=== PATIENT | male | born 1965 | race African-American/Black ===

== ENCOUNTER 2022-06-04 10:15 | Inpatient (IN) | payer OTHER ==
[2022-06-04 10:39] VITALS: BMI 33.3
[2022-06-04] MEDS ORDERED: guaiFENesin 200 MG/10 ML 10 ML UNIT-DOSE CUPS PO PRN (10:54)
[2022-06-04] MEDS ORDERED: LOPERAMIDE HCL 2 MG CAPSULE PO PRN (10:54)
[2022-06-04] MEDS ORDERED: POLYETHYLENE GLYCOL (HEALTHYLAX) 3350 17 GM PACKET PO PRN (10:54)
[2022-06-04] MEDS ORDERED: P-EPHED 60MG/TRIPROLIDI 2.5MG TABLET PO PRN (10:54)
[2022-06-04] MEDS ORDERED: DICYCLOMINE HCL 10 MG CAPSULE PO PRN (10:54)
[2022-06-04] MEDS ORDERED: IBUPROFEN 400 MG TABLET (FP) PO PRN (10:54)
[2022-06-04] MEDS ORDERED: BISMUTH SUBSALICYLATE 262 MG/15 ML BTL PO PRN (10:54)
[2022-06-04] MEDS ORDERED: BENZOCAINE/MENTHOL (CHLORASEPTIC ) LOZENGE MM PRN (10:54)
[2022-06-04] MEDS ORDERED: IBUPROFEN 600 MG TABLET (FP) PO PRN (10:54)
[2022-06-04] MEDS ORDERED: ONDANSETRON *ODT* 4 MG TABLET SL PRN (10:54)
[2022-06-04] MEDS ORDERED: ACETAMINOPHEN 325 MG TABLET (FP) PO PRN ×2 (10:54)
[2022-06-04] MEDS ORDERED: MAGNESIUM HYDROX 2400MG/30ML ORAL SUSPENSION 30 ML CUP PO PRN (10:54)
[2022-06-04] MEDS ORDERED: MAG HYDROX/AL HYDROX/SIMETH 30 ML UNIT-DOSE CUP PO PRN (10:54)
[2022-06-04] MEDS ORDERED: diazePAM 5 MG TABLET PO PRN (10:56)
[2022-06-04] MEDS: NICOTINE 14 MG/24 HOURS TOPICAL PATCH TD SCH (11:46)
[2022-06-04] MEDS: THIAMINE HCL 100 MG TABLET (FP) PO SCH (22:09)
[2022-06-04] MEDS: METHOCARBAMOL 500 MG TABLET PO PRN (22:09)
[2022-06-04] MEDS: MELATONIN 5 MG TABLETS PO PRN (22:10)
[2022-06-05] MEDS: PRENATAL VITAMINS W/ FOLIC ACID TABLET (FP) PO SCH (10:17)
[2022-06-05] MEDS: METHOCARBAMOL 500 MG TABLET PO PRN (10:18)
[2022-06-05] MEDS: hydrOXYzine PAMOATE 25 MG CAPSULE (FP) PO PRN (10:18)
[2022-06-05] MEDS: NICOTINE 14 MG/24 HOURS TOPICAL PATCH TD SCH (10:19)
[2022-06-05] MEDS ORDERED: chlordiazePOXIDE HCL 25 MG CAPSULE PO PRN (10:56)
[2022-06-05] MEDS: chlordiazePOXIDE HCL 25 MG CAPSULE PO SCH ×3 (12:09→22:18)
[2022-06-05 12:35] LABS: HEMATOCRIT 37.7 % (35.4-49); HEMOGLOBIN 12.5 GM/dL (11.7-16.9); MCH 29.4 pg (25.7-33.7); MCHC 33.1 g/dl (32.0-35.9); MEAN CELL VOLUME 88.8 fl (80-96); MEAN PLT VOLUME 8.3 fl (7.5-11.1); PLATELET COUNT 256 10^3/uL (134-434); RBC 4.25 M/mm3 (4.00-5.60); RDW 14.8 % (11.9-15.9); WHITE BLOOD COUNT 7.1 K/mm3 (4.0-10.0)
[2022-06-05 12:47] LABS: ALBUMIN 3.3 g/dl (3.4-5.0); BLOOD UREA NITROGEN 12.3 mg/dL (7-18); CALCIUM 8.4 mg/dL (8.5-10.1)
[2022-06-05 12:49] LABS: CREATININE 0.9 mg/dL (0.55-1.3)
[2022-06-05 12:53] LABS: BILIRUBIN,TOTAL 0.5 mg/dL (0.2-1); TOT PROT 6.7 g/dl (6.4-8.2)
[2022-06-05] MEDS: THIAMINE HCL 100 MG TABLET (FP) PO SCH (22:18)
[2022-06-05] MEDS: MELATONIN 5 MG TABLETS PO PRN (22:19)
[2022-06-06] MEDS: chlordiazePOXIDE HCL 25 MG CAPSULE PO SCH ×4 (05:34→22:00)
[2022-06-06] MEDS: PRENATAL VITAMINS W/ FOLIC ACID TABLET (FP) PO SCH (10:19)
[2022-06-06] MEDS: NICOTINE 14 MG/24 HOURS TOPICAL PATCH TD SCH (10:19)
[2022-06-06] MEDS: METHOCARBAMOL 500 MG TABLET PO PRN (10:21)
[2022-06-06] MEDS: hydrOXYzine PAMOATE 25 MG CAPSULE (FP) PO PRN (10:21)
[2022-06-06] MEDS: MELATONIN 5 MG TABLETS PO PRN (22:00)
[2022-06-06] MEDS: THIAMINE HCL 100 MG TABLET (FP) PO SCH (22:00)
[2022-06-07] MEDS: chlordiazePOXIDE HCL 25 MG CAPSULE PO SCH ×4 (06:01→22:15)
[2022-06-07] MEDS: PRENATAL VITAMINS W/ FOLIC ACID TABLET (FP) PO SCH (10:25)
[2022-06-07] MEDS: METHOCARBAMOL 500 MG TABLET PO PRN (10:26)
[2022-06-07] MEDS: NICOTINE 14 MG/24 HOURS TOPICAL PATCH TD SCH (10:26)
[2022-06-07 11:22] LABS: CALCIUM 8.7 mg/dL (8.5-10.1)
[2022-06-07 11:23] LABS: ALBUMIN 3.3 g/dl (3.4-5.0)
[2022-06-07 11:26] LABS: CREATININE 0.8 mg/dL (0.55-1.3)
[2022-06-07 11:27] LABS: TOT PROT 6.9 g/dl (6.4-8.2)
[2022-06-07 11:28] LABS: BILIRUBIN,TOTAL 0.5 mg/dL (0.2-1)
[2022-06-07] MEDS: MELATONIN 5 MG TABLETS PO PRN (22:15)
[2022-06-07] MEDS: THIAMINE HCL 100 MG TABLET (FP) PO SCH (22:15)
[2022-06-08] MEDS ORDERED: chlordiazePOXIDE HCL 10 MG CAPSULE PO PRN
[2022-06-08] MEDS: chlordiazePOXIDE HCL 10 MG CAPSULE PO SCH ×4 (06:10→22:20)
[2022-06-08] MEDS: PRENATAL VITAMINS W/ FOLIC ACID TABLET (FP) PO SCH (10:40)
[2022-06-08] MEDS: NICOTINE 14 MG/24 HOURS TOPICAL PATCH TD SCH (10:40)
[2022-06-08] MEDS: hydrOXYzine PAMOATE 25 MG CAPSULE (FP) PO PRN (10:40)
[2022-06-08] MEDS: METHOCARBAMOL 500 MG TABLET PO PRN (10:40)
[2022-06-08] MEDS: MELATONIN 5 MG TABLETS PO PRN (22:20)
[2022-06-08] MEDS: THIAMINE HCL 100 MG TABLET (FP) PO SCH (22:20)
[2022-06-09] MEDS: chlordiazePOXIDE HCL 10 MG CAPSULE PO SCH ×2 (05:52→17:40)
[2022-06-09] MEDS: METHOCARBAMOL 500 MG TABLET PO PRN ×2 (10:17→22:13)
[2022-06-09] MEDS: PRENATAL VITAMINS W/ FOLIC ACID TABLET (FP) PO SCH (10:17)
[2022-06-09] MEDS: hydrOXYzine PAMOATE 25 MG CAPSULE (FP) PO PRN ×2 (10:17→22:13)
[2022-06-09] MEDS: NICOTINE 14 MG/24 HOURS TOPICAL PATCH TD SCH (10:17)
[2022-06-09] MEDS: MELATONIN 5 MG TABLETS PO PRN (22:13)
[2022-06-09] MEDS: THIAMINE HCL 100 MG TABLET (FP) PO SCH (22:13)
[2022-06-10] MEDS ORDERED: chlordiazePOXIDE HCL 10 MG CAPSULE PO ONE (05:00)
[2022-06-10] MEDS ORDERED: INSULIN (NOVOLOG) ASPART 100 UNITS/ML 10ML VIAL SQ ONE ×2 (06:29→14:21)
[2022-06-10] MEDS: PRENATAL VITAMINS W/ FOLIC ACID TABLET (FP) PO SCH (10:40)
[2022-06-10] MEDS: NICOTINE 14 MG/24 HOURS TOPICAL PATCH TD SCH (10:40)
[2022-06-10] MEDS ORDERED: INSULIN (NOVOLOG) ASPART 100 UNITS/ML 10ML VIAL ONE ×2 (16:50→21:57)
[2022-06-10] MEDS: INSULIN (NOVOLOG) ASPART 100 UNITS/ML 10ML VIAL SQ SCH ×2 (16:53→22:16)
[2022-06-10] MEDS: MELATONIN 5 MG TABLETS PO PRN (22:16)
[2022-06-10] MEDS: THIAMINE HCL 100 MG TABLET (FP) PO SCH (22:17)
[2022-06-11] MEDS ORDERED: INSULIN (NOVOLOG) ASPART 100 UNITS/ML 10ML VIAL ONE (05:56)
[2022-06-11] MEDS: INSULIN (NOVOLOG) ASPART 100 UNITS/ML 10ML VIAL SQ SCH (06:57)
[2022-06-11 07:01] VITALS: RESP 18
[2022-06-11 09:17] VITALS: BP 107/87; PULSE 87; TEMP 97.8
[2022-06-11] MEDS: NICOTINE 14 MG/24 HOURS TOPICAL PATCH TD SCH (10:49)
[2022-06-11] MEDS: PRENATAL VITAMINS W/ FOLIC ACID TABLET (FP) PO SCH (10:49)
[2022-06-11] MEDS ORDERED: INSULIN (NOVOLOG) ASPART 100 UNITS/ML 10ML VIAL SQ SCH (11:00)
== END 2022-06-11 11:02 | disposition home or self-care (01) | DRG 775 ==
LOC: YASAS 10:15 → Y6N 11:11
PROVIDERS: ADMIT Allergy & Immunology; ATTEND Surgery
PROC: HZ2ZZZZ Detoxification Services for Substance Abuse Treatment (ICD-10-PCS; principal; 2022-06-04)
DX: F10.230 Alcohol dependence with withdrawal, uncomplicated (principal); F17.210 Nicotine dependence, cigarettes, uncomplicated; E87.1 Hypo-osmolality and hyponatremia; E11.65 Type 2 diabetes mellitus with hyperglycemia; Z79.4 Long term (current) use of insulin; M17.0 Bilateral primary osteoarthritis of knee
CPT/HCPCS: 36415; 80053; 82962; 83036; 84295; 85027; 86780; C9803-CS; U0003; U0005

== ENCOUNTER 2022-11-12 12:30 | Inpatient (IN) | payer OTHER ==
[2022-11-12 13:17] VITALS: BMI 33.6
[2022-11-12] MEDS ORDERED: MAGNESIUM HYDROX 2400MG/30ML ORAL SUSPENSION 30 ML CUP PO PRN (13:35)
[2022-11-12] MEDS ORDERED: IBUPROFEN 400 MG TABLET (FP) PO PRN (13:35)
[2022-11-12] MEDS ORDERED: chlordiazePOXIDE HCL 25 MG CAPSULE PO PRN (13:35)
[2022-11-12] MEDS ORDERED: hydrOXYzine PAMOATE 25 MG CAPSULE (FP) PO PRN (13:35)
[2022-11-12] MEDS ORDERED: BISMUTH SUBSALICYLATE 262 MG/15 ML BTL PO PRN (13:35)
[2022-11-12] MEDS ORDERED: NALOXONE HCL (KLOXXADO) 8 MG SPRAY NS PRN (13:35)
[2022-11-12] MEDS ORDERED: BENZONATATE 200 MG CAPSULE PO PRN (13:35)
[2022-11-12] MEDS ORDERED: NALOXONE HCL 0.4 MG/ML VIAL IM PRN (13:35)
[2022-11-12] MEDS ORDERED: ACETAMINOPHEN 325 MG TABLET (FP) PO PRN (13:35)
[2022-11-12] MEDS ORDERED: ONDANSETRON *ODT* 4 MG TABLET SL PRN (13:35)
[2022-11-12] MEDS ORDERED: DICYCLOMINE HCL 10 MG CAPSULE PO PRN (13:35)
[2022-11-12] MEDS ORDERED: POLYETHYLENE GLYCOL (HEALTHYLAX) 3350 17 GM PACKET PO PRN (13:35)
[2022-11-12] MEDS ORDERED: IBUPROFEN 600 MG TABLET (FP) PO PRN (13:35)
[2022-11-12] MEDS ORDERED: MAG HYDROX/AL HYDROX/SIMETH 30 ML UNIT-DOSE CUP PO PRN (13:35)
[2022-11-12] MEDS ORDERED: BENZOCAINE/MENTHOL (CHLORASEPTIC ) LOZENGE MM PRN (13:35)
[2022-11-12] MEDS ORDERED: guaiFENesin 600 MG TABLET.ER (FP) PO PRN (13:35)
[2022-11-12] MEDS: PRENATAL VITAMINS W/ FOLIC ACID TABLET (FP) PO SCH (14:35)
[2022-11-12] MEDS: NICOTINE 21 MG/24 HOURS TOPICAL PATCH TD SCH (14:35)
[2022-11-12] MEDS ORDERED: NICOTINE 21 MG/24 HOURS TOPICAL PATCH ONE (15:12)
[2022-11-12] MEDS: cloNIDine HCL 0.1 MG TABLET PO PRN ×2 (16:02→22:24)
[2022-11-12] MEDS: metFORMIN HCL 500 MG TABLET (FP) PO SCH (16:02)
[2022-11-12] MEDS: chlordiazePOXIDE HCL 25 MG CAPSULE PO SCH ×2 (17:24→22:25)
[2022-11-12] MEDS ORDERED: MELATONIN 5 MG TABLETS PO SCH (22:00)
[2022-11-12] MEDS: METHOCARBAMOL 500 MG TABLET PO PRN (22:25)
[2022-11-12] MEDS: THIAMINE HCL 100 MG TABLET (FP) PO SCH (22:25)
[2022-11-13] MEDS: chlordiazePOXIDE HCL 25 MG CAPSULE PO SCH ×4 (05:42→22:25)
[2022-11-13] MEDS: metFORMIN HCL 500 MG TABLET (FP) PO SCH (10:14)
[2022-11-13] MEDS: PRENATAL VITAMINS W/ FOLIC ACID TABLET (FP) PO SCH (10:14)
[2022-11-13] MEDS: NICOTINE 21 MG/24 HOURS TOPICAL PATCH TD SCH (10:16)
[2022-11-13 12:16] LABS: HEMATOCRIT 38.1 % (35.4-49); HEMOGLOBIN 12.9 GM/dL (11.7-16.9); MCH 29.2 pg (25.7-33.7); MCHC 33.8 g/dl (32.0-35.9); MEAN CELL VOLUME 86.5 fl (80-96); PLATELET COUNT 287 10^3/uL (134-434); RBC 4.41 M/mm3 (4.00-5.60); WHITE BLOOD COUNT 7.4 K/mm3 (4.0-10.0)
[2022-11-13 12:22] LABS: POTASSIUM 4.4 mmol/L (3.5-5.1)
[2022-11-13 12:55] LABS: ALBUMIN 3.4 g/dl (3.4-5.0)
[2022-11-13 12:59] LABS: CALCIUM 9.2 mg/dL (8.5-10.1)
[2022-11-13 13:02] LABS: BLOOD UREA NITROGEN 12.2 mg/dL (7-18)
[2022-11-13 13:03] LABS: BILIRUBIN,TOTAL 0.4 mg/dL (0.2-1); CREATININE 0.9 mg/dL (0.55-1.3); TOT PROT 7.5 g/dl (6.4-8.2)
[2022-11-13] MEDS: LOPERAMIDE HCL 2 MG CAPSULE PO PRN (18:37)
[2022-11-13] MEDS: THIAMINE HCL 100 MG TABLET (FP) PO SCH (22:25)
[2022-11-13] MEDS: QUEtiapine FUMARATE 100 MG TABLET (FP) PO SCH (22:25)
[2022-11-13] MEDS: METHOCARBAMOL 500 MG TABLET PO PRN (22:26)
[2022-11-14] MEDS: chlordiazePOXIDE HCL 25 MG CAPSULE PO SCH ×4 (05:59→22:26)
[2022-11-14] MEDS: PRENATAL VITAMINS W/ FOLIC ACID TABLET (FP) PO SCH (10:27)
[2022-11-14] MEDS: metFORMIN HCL 500 MG TABLET (FP) PO SCH (10:27)
[2022-11-14] MEDS: NICOTINE 21 MG/24 HOURS TOPICAL PATCH TD SCH (10:28)
[2022-11-14] MEDS: LACTULOSE 20 GM/30 ML UDC (FOR ORAL USE ONLY) PO SCH ×3 (15:17→22:25)
[2022-11-14] MEDS ORDERED: LACTULOSE 20 GM/30 ML UDC (FOR ORAL USE ONLY) PO ONE (15:53)
[2022-11-14] MEDS: LOPERAMIDE HCL 2 MG CAPSULE PO PRN (19:22)
[2022-11-14] MEDS: QUEtiapine FUMARATE 100 MG TABLET (FP) PO SCH (22:25)
[2022-11-14] MEDS: THIAMINE HCL 100 MG TABLET (FP) PO SCH (22:26)
[2022-11-14] MEDS: METHOCARBAMOL 500 MG TABLET PO PRN (22:27)
[2022-11-15] MEDS ORDERED: chlordiazePOXIDE HCL 10 MG CAPSULE PO PRN
[2022-11-15] MEDS: chlordiazePOXIDE HCL 10 MG CAPSULE PO SCH ×4 (06:00→22:04)
[2022-11-15] MEDS: metFORMIN HCL 500 MG TABLET (FP) PO SCH (10:10)
[2022-11-15] MEDS: PRENATAL VITAMINS W/ FOLIC ACID TABLET (FP) PO SCH (10:10)
[2022-11-15] MEDS: NICOTINE 21 MG/24 HOURS TOPICAL PATCH TD SCH (10:11)
[2022-11-15] MEDS: LACTULOSE 20 GM/30 ML UDC (FOR ORAL USE ONLY) PO SCH ×4 (10:11→22:47)
[2022-11-15] MEDS: HYDROCORTISONE 2.5% TOPICAL CREAM 30 GM TUBE TP SCH (15:42)
[2022-11-15] MEDS: QUEtiapine FUMARATE 100 MG TABLET (FP) PO SCH (22:03)
[2022-11-15] MEDS: METHOCARBAMOL 500 MG TABLET PO PRN (22:04)
[2022-11-15] MEDS: THIAMINE HCL 100 MG TABLET (FP) PO SCH (22:04)
[2022-11-16] MEDS: chlordiazePOXIDE HCL 10 MG CAPSULE PO SCH ×2 (05:47→17:40)
[2022-11-16] MEDS: metFORMIN HCL 500 MG TABLET (FP) PO SCH ×2 (10:28→17:39)
[2022-11-16] MEDS: PRENATAL VITAMINS W/ FOLIC ACID TABLET (FP) PO SCH (10:28)
[2022-11-16] MEDS: NICOTINE 21 MG/24 HOURS TOPICAL PATCH TD SCH (10:29)
[2022-11-16] MEDS: LACTULOSE 20 GM/30 ML UDC (FOR ORAL USE ONLY) PO SCH ×4 (10:29→21:27)
[2022-11-16] MEDS: HYDROCORTISONE 2.5% TOPICAL CREAM 30 GM TUBE TP SCH (14:04)
[2022-11-16] MEDS: INSULIN SLIDING SCALE (NOVOLOG) 1 VIAL SQ SCH (17:39)
[2022-11-16] MEDS: QUEtiapine FUMARATE 100 MG TABLET (FP) PO SCH (21:28)
[2022-11-16] MEDS: THIAMINE HCL 100 MG TABLET (FP) PO SCH (21:28)
[2022-11-17] MEDS ORDERED: chlordiazePOXIDE HCL 10 MG CAPSULE PO ONE (05:00)
[2022-11-17] MEDS: metFORMIN HCL 500 MG TABLET (FP) PO SCH ×2 (06:20→16:39)
[2022-11-17] MEDS: INSULIN SLIDING SCALE (NOVOLOG) 1 VIAL SQ SCH ×3 (06:20→16:39)
[2022-11-17] MEDS: NICOTINE 21 MG/24 HOURS TOPICAL PATCH TD SCH (10:08)
[2022-11-17] MEDS: PRENATAL VITAMINS W/ FOLIC ACID TABLET (FP) PO SCH (10:08)
[2022-11-17] MEDS: LACTULOSE 20 GM/30 ML UDC (FOR ORAL USE ONLY) PO SCH ×3 (10:09→17:32)
[2022-11-17] MEDS ORDERED: PANTOPRAZOLE 40 MG TABLET PO SCH (13:00)
[2022-11-17] MEDS: HYDROCORTISONE 2.5% TOPICAL CREAM 30 GM TUBE TP SCH (14:48)
[2022-11-17 17:08] VITALS: BP 139/82; PULSE 95; RESP 20; TEMP 98.1
== END 2022-11-17 19:07 | disposition other institution (70) | DRG 775 ==
LOC: YASAS 12:30 → Y3N 15:04
PROVIDERS: ADMIT Allergy & Immunology; ATTEND Surgery
PROC: HZ2ZZZZ Detoxification Services for Substance Abuse Treatment (ICD-10-PCS; principal; 2022-11-12)
DX: F10.230 Alcohol dependence with withdrawal, uncomplicated (principal); F17.210 Nicotine dependence, cigarettes, uncomplicated; F19.282 Other psychoactive substance dependence with psychoactive substance-induced sleep disorder; G47.00 Insomnia, unspecified; E11.9 Type 2 diabetes mellitus without complications; Z79.4 Long term (current) use of insulin; R79.89 Other specified abnormal findings of blood chemistry
CPT/HCPCS: 36415; 80053; 82140; 82962; 85027; 86780; 87635

== ENCOUNTER 2022-11-17 19:53 | Inpatient (IN) | payer OTHER ==
[2022-11-17] MEDS ORDERED: AMMONIUM LACTATE 12% LOTION 225 GM BOTTLE TP PRN (22:02)
[2022-11-17] MEDS ORDERED: BENZOCAINE/MENTHOL (CHLORASEPTIC ) LOZENGE MM PRN (22:02)
[2022-11-17] MEDS ORDERED: METHOCARBAMOL 500 MG TABLET PO PRN (22:02)
[2022-11-17] MEDS ORDERED: POLYETHYLENE GLYCOL (HEALTHYLAX) 3350 17 GM PACKET PO PRN (22:02)
[2022-11-17] MEDS ORDERED: guaiFENesin 600 MG TABLET.ER (FP) PO PRN (22:02)
[2022-11-17] MEDS ORDERED: NALOXONE HCL 0.4 MG/ML VIAL IVPUSH PRN (22:02)
[2022-11-17] MEDS ORDERED: MAG HYDROX/AL HYDROX/SIMETH 30 ML UNIT-DOSE CUP PO PRN (22:02)
[2022-11-17] MEDS ORDERED: IBUPROFEN 400 MG TABLET (FP) PO PRN (22:02)
[2022-11-17] MEDS ORDERED: MAGNESIUM HYDROX 2400MG/30ML ORAL SUSPENSION 30 ML CUP PO PRN (22:02)
[2022-11-17] MEDS ORDERED: BENZONATATE 200 MG CAPSULE PO PRN (22:02)
[2022-11-17] MEDS ORDERED: ACETAMINOPHEN 325 MG TABLET (FP) PO PRN (22:02)
[2022-11-17] MEDS ORDERED: NALOXONE HCL (KLOXXADO) 8 MG SPRAY NS PRN (22:02)
[2022-11-17] MEDS ORDERED: LOPERAMIDE HCL 2 MG CAPSULE PO PRN (22:02)
[2022-11-17] MEDS ORDERED: IBUPROFEN 600 MG TABLET (FP) PO PRN (22:02)
[2022-11-17] MEDS: MELATONIN 5 MG TABLETS PO SCH (23:34)
[2022-11-18] MEDS: PRENATAL VITAMINS W/ FOLIC ACID TABLET (FP) PO SCH (10:06)
[2022-11-18] MEDS: INSULIN SLIDING SCALE (NOVOLOG) 1 VIAL SQ SCH (16:32)
[2022-11-18] MEDS: MELATONIN 5 MG TABLETS PO SCH (21:33)
[2022-11-18] MEDS: QUEtiapine FUMARATE 100 MG TABLET (FP) PO SCH (21:34)
[2022-11-18] MEDS: THIAMINE HCL 100 MG TABLET (FP) PO SCH (21:34)
[2022-11-19] MEDS: INSULIN SLIDING SCALE (NOVOLOG) 1 VIAL SQ SCH ×2 (06:56→16:27)
[2022-11-19] MEDS: metFORMIN HCL 500 MG TABLET (FP) PO SCH (06:57)
[2022-11-19] MEDS: PRENATAL VITAMINS W/ FOLIC ACID TABLET (FP) PO SCH (10:07)
[2022-11-19] MEDS: THIAMINE HCL 100 MG TABLET (FP) PO SCH (21:07)
[2022-11-19] MEDS: MELATONIN 5 MG TABLETS PO SCH (21:07)
[2022-11-19] MEDS: QUEtiapine FUMARATE 100 MG TABLET (FP) PO SCH (21:07)
[2022-11-20] MEDS ORDERED: INSULIN SLIDING SCALE (NOVOLOG) 1 VIAL SQ ONE (06:23)
[2022-11-20] MEDS: INSULIN SLIDING SCALE (NOVOLOG) 1 VIAL SQ SCH ×2 (06:25→16:22)
[2022-11-20] MEDS: metFORMIN HCL 500 MG TABLET (FP) PO SCH (06:25)
[2022-11-20] MEDS: PRENATAL VITAMINS W/ FOLIC ACID TABLET (FP) PO SCH (10:26)
[2022-11-20] MEDS: COLLOIDAL OATMEAL 1 BAR EACH TP PRN (12:42)
[2022-11-20] MEDS: THIAMINE HCL 100 MG TABLET (FP) PO SCH (21:23)
[2022-11-20] MEDS: MELATONIN 5 MG TABLETS PO SCH (21:23)
[2022-11-20] MEDS: QUEtiapine FUMARATE 100 MG TABLET (FP) PO SCH (21:24)
[2022-11-21] MEDS: metFORMIN HCL 500 MG TABLET (FP) PO SCH (06:15)
[2022-11-21] MEDS: INSULIN SLIDING SCALE (NOVOLOG) 1 VIAL SQ SCH ×2 (06:17→16:27)
[2022-11-21] MEDS: PRENATAL VITAMINS W/ FOLIC ACID TABLET (FP) PO SCH (10:25)
[2022-11-21] MEDS: THIAMINE HCL 100 MG TABLET (FP) PO SCH (21:18)
[2022-11-21] MEDS: QUEtiapine FUMARATE 100 MG TABLET (FP) PO SCH (21:18)
[2022-11-21] MEDS: MELATONIN 5 MG TABLETS PO SCH (21:18)
[2022-11-22] MEDS: INSULIN SLIDING SCALE (NOVOLOG) 1 VIAL SQ SCH ×2 (07:10→17:17)
[2022-11-22] MEDS: metFORMIN HCL 500 MG TABLET (FP) PO SCH (07:10)
[2022-11-22] MEDS: PRENATAL VITAMINS W/ FOLIC ACID TABLET (FP) PO SCH (09:45)
[2022-11-22] MEDS: QUEtiapine FUMARATE 100 MG TABLET (FP) PO SCH (21:10)
[2022-11-22] MEDS: THIAMINE HCL 100 MG TABLET (FP) PO SCH (21:10)
[2022-11-22] MEDS: MELATONIN 5 MG TABLETS PO SCH (21:10)
[2022-11-23] MEDS: INSULIN SLIDING SCALE (NOVOLOG) 1 VIAL SQ SCH ×2 (06:49→16:27)
[2022-11-23] MEDS: metFORMIN HCL 500 MG TABLET (FP) PO SCH (06:49)
[2022-11-23] MEDS: PRENATAL VITAMINS W/ FOLIC ACID TABLET (FP) PO SCH (09:26)
[2022-11-23] MEDS: PANTOPRAZOLE 40 MG TABLET PO SCH (09:27)
[2022-11-23] MEDS: QUEtiapine FUMARATE 100 MG TABLET (FP) PO SCH (21:32)
[2022-11-23] MEDS: THIAMINE HCL 100 MG TABLET (FP) PO SCH (21:32)
[2022-11-23] MEDS: MELATONIN 5 MG TABLETS PO SCH (21:32)
[2022-11-24] MEDS: INSULIN SLIDING SCALE (NOVOLOG) 1 VIAL SQ SCH ×2 (06:28→16:27)
[2022-11-24] MEDS: metFORMIN HCL 500 MG TABLET (FP) PO SCH (06:28)
[2022-11-24] MEDS: PRENATAL VITAMINS W/ FOLIC ACID TABLET (FP) PO SCH (10:01)
[2022-11-24] MEDS: PANTOPRAZOLE 40 MG TABLET PO SCH (10:01)
[2022-11-24] MEDS: THIAMINE HCL 100 MG TABLET (FP) PO SCH (21:06)
[2022-11-24] MEDS: QUEtiapine FUMARATE 100 MG TABLET (FP) PO SCH (21:06)
[2022-11-24] MEDS: MELATONIN 5 MG TABLETS PO SCH (21:06)
[2022-11-25] MEDS: metFORMIN HCL 500 MG TABLET (FP) PO SCH (07:23)
[2022-11-25] MEDS: INSULIN SLIDING SCALE (NOVOLOG) 1 VIAL SQ SCH ×2 (07:25→16:59)
[2022-11-25] MEDS ORDERED: INSULIN SLIDING SCALE (NOVOLOG) 1 VIAL SQ ONE (07:27)
[2022-11-25] MEDS: PRENATAL VITAMINS W/ FOLIC ACID TABLET (FP) PO SCH (09:47)
[2022-11-25] MEDS: PANTOPRAZOLE 40 MG TABLET PO SCH (09:47)
[2022-11-25] MEDS: THIAMINE HCL 100 MG TABLET (FP) PO SCH (21:14)
[2022-11-25] MEDS: MELATONIN 5 MG TABLETS PO SCH (21:15)
[2022-11-25] MEDS: QUEtiapine FUMARATE 100 MG TABLET (FP) PO SCH (21:15)
[2022-11-26] MEDS: metFORMIN HCL 500 MG TABLET (FP) PO SCH (07:00)
[2022-11-26] MEDS: INSULIN SLIDING SCALE (NOVOLOG) 1 VIAL SQ SCH ×2 (07:01→16:30)
[2022-11-26] MEDS: PANTOPRAZOLE 40 MG TABLET PO SCH (09:48)
[2022-11-26] MEDS: PRENATAL VITAMINS W/ FOLIC ACID TABLET (FP) PO SCH (09:48)
[2022-11-26] MEDS: QUEtiapine FUMARATE 100 MG TABLET (FP) PO SCH (21:40)
[2022-11-26] MEDS: MELATONIN 5 MG TABLETS PO SCH (21:41)
[2022-11-26] MEDS: THIAMINE HCL 100 MG TABLET (FP) PO SCH (21:41)
[2022-11-27] MEDS: metFORMIN HCL 500 MG TABLET (FP) PO SCH (06:36)
[2022-11-27] MEDS: INSULIN SLIDING SCALE (NOVOLOG) 1 VIAL SQ SCH ×2 (06:36→16:34)
[2022-11-27 07:15] VITALS: RESP 18
[2022-11-27] MEDS: PANTOPRAZOLE 40 MG TABLET PO SCH (10:01)
[2022-11-27] MEDS: PRENATAL VITAMINS W/ FOLIC ACID TABLET (FP) PO SCH (10:01)
[2022-11-27] MEDS: COLLOIDAL OATMEAL 1 BAR EACH TP PRN (14:43)
[2022-11-27] MEDS: QUEtiapine FUMARATE 100 MG TABLET (FP) PO SCH (21:10)
[2022-11-27] MEDS: THIAMINE HCL 100 MG TABLET (FP) PO SCH (21:10)
[2022-11-27] MEDS: GABAPENTIN 300 MG CAPSULE PO SCH (21:11)
[2022-11-28] MEDS: metFORMIN HCL 500 MG TABLET (FP) PO SCH (06:49)
[2022-11-28] MEDS: INSULIN SLIDING SCALE (NOVOLOG) 1 VIAL SQ SCH ×2 (06:49→16:30)
[2022-11-28 07:21] VITALS: TEMP 97.1
[2022-11-28] MEDS: PRENATAL VITAMINS W/ FOLIC ACID TABLET (FP) PO SCH (09:33)
[2022-11-28] MEDS: PANTOPRAZOLE 40 MG TABLET PO SCH (09:33)
[2022-11-28] MEDS: QUEtiapine FUMARATE 100 MG TABLET (FP) PO SCH (21:26)
[2022-11-28] MEDS: GABAPENTIN 300 MG CAPSULE PO SCH (21:26)
[2022-11-28] MEDS: THIAMINE HCL 100 MG TABLET (FP) PO SCH (21:26)
[2022-11-29] MEDS: metFORMIN HCL 500 MG TABLET (FP) PO SCH (06:22)
[2022-11-29] MEDS: INSULIN SLIDING SCALE (NOVOLOG) 1 VIAL SQ SCH (06:22)
[2022-11-29 08:02] VITALS: BP 135/100; PULSE 98
[2022-11-29] MEDS: PANTOPRAZOLE 40 MG TABLET PO SCH (09:28)
[2022-11-29] MEDS: PRENATAL VITAMINS W/ FOLIC ACID TABLET (FP) PO SCH (09:28)
== END 2022-11-29 09:42 | disposition home or self-care (01) | DRG 772 ==
LOC: YASAS 19:53 → Y3W 19:54
PROVIDERS: ADMIT Allergy & Immunology; ATTEND Psychiatry & Neurology Pain Medicine
PROC: HZ42ZZZ Group Counseling for Substance Abuse Treatment, Cognitive-Behavioral (ICD-10-PCS; principal; 2022-11-17)
DX: F10.20 Alcohol dependence, uncomplicated (principal); F17.210 Nicotine dependence, cigarettes, uncomplicated; F19.282 Other psychoactive substance dependence with psychoactive substance-induced sleep disorder; K21.9 Gastro-esophageal reflux disease without esophagitis; E10.9 Type 1 diabetes mellitus without complications; Z79.4 Long term (current) use of insulin
CPT/HCPCS: 36415; 82962; 86803

== ENCOUNTER 2023-10-21 13:47 | Inpatient (IN) | payer OTHER ==
[2023-10-21 17:16] VITALS: BMI 30.1
[2023-10-21] MEDS ORDERED: ONDANSETRON *ODT* 4 MG TABLET SL PRN (18:33)
[2023-10-21] MEDS ORDERED: DICYCLOMINE HCL 10 MG CAPSULE PO PRN (18:33)
[2023-10-21] MEDS ORDERED: MAG HYDROX/AL HYDROX/SIMETH 30 ML UNIT-DOSE CUP PO PRN (18:33)
[2023-10-21] MEDS ORDERED: P-EPHED 60MG/TRIPROLIDI 2.5MG TABLET PO PRN (18:33)
[2023-10-21] MEDS ORDERED: BENZOCAINE/MENTHOL (CHLORASEPTIC ) LOZENGE MM PRN (18:33)
[2023-10-21] MEDS ORDERED: NICOTINE POLACRILEX 2 MG GUM BUC PRN (18:33)
[2023-10-21] MEDS ORDERED: POLYETHYLENE GLYCOL (HEALTHYLAX) 3350 17 GM PACKET PO PRN (18:33)
[2023-10-21] MEDS ORDERED: ACETAMINOPHEN 325 MG TABLET (FP) PO PRN (18:33)
[2023-10-21] MEDS ORDERED: NICOTINE POLACRILEX 2 MG LOZENGE BC PRN (18:33)
[2023-10-21] MEDS ORDERED: guaiFENesin 600 MG TABLET.ER (FP) PO PRN (18:33)
[2023-10-21] MEDS ORDERED: BISMUTH SUBSALICYLATE 524 MG/30 ML PO PRN (18:33)
[2023-10-21] MEDS ORDERED: IBUPROFEN 400 MG TABLET (FP) PO PRN (18:33)
[2023-10-21] MEDS ORDERED: BENZONATATE 200 MG CAPSULE PO PRN (18:33)
[2023-10-21] MEDS ORDERED: MAGNESIUM HYDROX 2400MG/30ML ORAL SUSPENSION 30 ML CUP PO PRN (18:33)
[2023-10-21] MEDS ORDERED: LOPERAMIDE HCL 2 MG CAPSULE PO PRN (18:33)
[2023-10-21] MEDS: MELATONIN 5 MG TABLETS PO SCH (22:13)
[2023-10-21] MEDS: THIAMINE 100 MG TABLET PO SCH (22:14)
[2023-10-22] MEDS: metFORMIN HCL 500 MG TABLET (FP) PO SCH (06:09)
[2023-10-22] MEDS ORDERED: chlordiazePOXIDE HCL 25 MG CAPSULE PO PRN (07:03)
[2023-10-22] MEDS: LISINOPRIL 5 MG TABLET PO SCH (09:07)
[2023-10-22] MEDS: PRENATAL VITAMINS W/ FOLIC ACID TABLET (FP) PO SCH (09:07)
[2023-10-22] MEDS: PANTOPRAZOLE 40 MG TABLET PO SCH (09:08)
[2023-10-22] MEDS: chlordiazePOXIDE HCL 25 MG CAPSULE PO SCH (10:08)
[2023-10-22] MEDS: EMPAGLIFLOZIN (JARDIANCE) 10 MG TABLET PO SCH (10:08)
[2023-10-22 11:50] LABS: HEMATOCRIT 37.4 % (35.4-49); HEMOGLOBIN 12.7 GM/dL (11.7-16.9); MCH 30.1 pg (25.7-33.7); MCHC 33.9 g/dl (32.0-35.9); MEAN CELL VOLUME 88.9 fl (80-96); PLATELET COUNT 331 10^3/uL (134-434); RDW 15.1 % (11.9-15.9); WHITE BLOOD COUNT 8.2 K/mm3 (4.0-10.0)
[2023-10-22 11:54] LABS: CHLORIDE 95 mmol/L (98-107); POTASSIUM 4.4 mmol/L (3.5-5.1); SODIUM 129 mmol/L (136-145)
[2023-10-22 12:01] LABS: CALCIUM 8.9 mg/dL (8.5-10.1); SGPT/ALT 57 U/L (13-61)
[2023-10-22 12:02] LABS: ALBUMIN 3.5 g/dl (3.4-5.0); ANION GAP 8 mmol/L (4-13); CO2 26 mmol/L (21-32); CREATININE 0.8 mg/dL (0.55-1.3); GLUCOSE,RANDOM 108 mg/dL (74-106)
[2023-10-22 12:03] LABS: BILIRUBIN,TOTAL 0.6 mg/dL (0.2-1); TOT PROT 7.4 g/dl (6.4-8.2)
[2023-10-22 12:04] LABS: ALK PHOS 75 U/L (45-117)
[2023-10-22 12:05] LABS: SGOT/AST 38 U/L (15-37)
[2023-10-22] MEDS: METHOCARBAMOL 500 MG TABLET PO PRN (12:44)
[2023-10-22] MEDS: hydrOXYzine PAMOATE 25 MG CAPSULE (FP) PO PRN (12:44)
[2023-10-22] MEDS: QUEtiapine FUMARATE 100 MG TABLET (FP) PO SCH (22:18)
[2023-10-24] MEDS: chlordiazePOXIDE HCL 25 MG CAPSULE PO SCH (05:38)
[2023-10-24 17:44] LABS: POTASSIUM 4.3 mmol/L (3.5-5.1)
[2023-10-24 17:47] LABS: CALCIUM 9.4 mg/dL (8.5-10.1)
[2023-10-24 17:48] LABS: BLOOD UREA NITROGEN 5.4 mg/dL (7-18)
[2023-10-24 17:51] LABS: CREATININE 0.8 mg/dL (0.55-1.3)
[2023-10-25] MEDS ORDERED: chlordiazePOXIDE HCL 10 MG CAPSULE PO PRN
[2023-10-25] MEDS: chlordiazePOXIDE HCL 10 MG CAPSULE PO SCH (05:37)
[2023-10-25] MEDS: IBUPROFEN 600 MG TABLET (FP) PO PRN (17:12)
[2023-10-26] MEDS: chlordiazePOXIDE HCL 10 MG CAPSULE PO SCH (05:40)
[2023-10-26 06:33] VITALS: RESP 16
[2023-10-26 09:44] VITALS: BP 128/77; PULSE 100; TEMP 97.7
[2023-10-27] MEDS ORDERED: chlordiazePOXIDE HCL 10 MG CAPSULE PO ONE (05:00)
== END 2023-10-26 10:07 | disposition home or self-care (01) | DRG 775 ==
LOC: YASAS 13:47 → Y6N 18:25
PROVIDERS: ADMIT Allergy & Immunology; ATTEND Surgery
PROC: HZ2ZZZZ Detoxification Services for Substance Abuse Treatment (ICD-10-PCS; principal; 2023-10-21)
DX: F10.230 Alcohol dependence with withdrawal, uncomplicated (principal); F17.213 Nicotine dependence, cigarettes, with withdrawal; F25.9 Schizoaffective disorder, unspecified; I10 Essential (primary) hypertension; K21.9 Gastro-esophageal reflux disease without esophagitis; E11.69 Type 2 diabetes mellitus with other specified complication; Z79.84 Long term (current) use of oral hypoglycemic drugs
CPT/HCPCS: 36415; 80048; 80053; 80305; 80307; 82962; 85027; 86780